=== PATIENT | male | born 1990 ===

== ENCOUNTER 2017-06-17 16:04 | Emergency (ER) | payer SELFPAY ==
[2017-06-17 16:11] VITALS: BP 113/69
[2017-06-17] MEDS ORDERED: DOXYcycline CAP(*) 100 MG PO ONE (17:55)
--- NOTE | 2017-06-17 18:08 | ED ---
Bite Injury/Animal - HPI Summary HPI Summary: Pt here w/ tick bite to posterior thigh x 36 hours. Believes it attached during a hike Friday and didn't find it until this morning. Area was tender - somewhat better now. Removed completely. No EM rash nor other sx. Imms are UTD. Agrees to take 1 x doxyxycline prophylaxis. - History of Current Complaint Chief Complaint: EDGeneral Stated Complaint: TICK BITE Time Seen by Provider: 06/17/17 17:54 Hx Obtained From: Patient Pain Intensity: 0 PMH/Surg Hx/FS Hx/Imm Hx Previously Healthy: Yes Endocrine/Hematology History: Denies: Hx Anticoagulant Therapy, Hx Blood Disorders, Autoimmune Disease - Immunization History Immunizations Up to Date: Yes Infectious Disease History: No Infectious Disease History: Denies: Traveled Outside the [place] in Last 30 Days - Family History Known Family History: Positive: None - Social History Occupation: Employed Full-time Alcohol Use: Occasionally Hx Substance Use: No Substance Use Type: Reports: None Hx Tobacco Use: No Smoking Status (MU): Never Smoked Tobacco Review of Systems Constitutional: Negative Positive: no symptoms reported Positive: Myalgia - in focal area of bite. Negative: Arthralgia Skin: Other - see HPI Neurological: Negative Negative: Weakness, Paresthesia, Numbness Psychological: Normal All Other Systems Reviewed And Are Negative: Yes Physical Exam Triage Information Reviewed: Yes Vital Signs On Initial Exam: Initial Vitals Temp Pulse Resp BP Pulse Ox 97.9 F 80 20 113/69 100 06/17/17 16:08 06/17/17 16:08 06/17/17 16:08 06/17/17 16:08 06/17/17 16:08 Vital Signs Reviewed: Yes Appearance: Positive: Well-Appearing, No Pain Distress, Well-Nourished Skin: Positive: Warm, Dry - macular ecchymosis over bite area about 2mm in size - no EM rash observed Head/Face: Positive: Normal Head/Face Inspection Eyes: Positive: EOMI ENT: Positive: Hearing grossly normal Respiratory/Lung Sounds: Positive: Breath Sounds Present Cardiovascular: Positive: Pulses are Symmetrical in both Upper and Lower Extremities Musculoskeletal: Positive: Normal, Strength/ROM Intact Neurological: Positive: Normal, Sensory/Motor Intact, Alert, Oriented to Person Place, Time, CN Intact II-III Psychiatric: Positive: Normal Diagnostics - Vital Signs Vital Signs Temp Pulse Resp BP Pulse Ox 10/24/17 16:08 97.9 F 80 20 113/69 100 - Laboratory Lab Statement: Any lab studies that have been ordered have been reviewed, and results considered in the medical decision making process. Bite Injury Course/Dx - Diagnoses Provider Diagnosis: Tick bite of thigh Discharge - Discharge Plan Condition: Stable Disposition: HOME Patient Education Materials: Tick Bite (ED) Referrals: Zonia Cartagena MD [Primary Care Provider] - Additional Instructions: Monitor for signs/symptoms of Lyme disease Follow-up with PCP if you have any concerns
== END 2017-06-17 18:24 | disposition home or self-care (01) ==
LOC: ED 16:04
DX: S70.369A Insect bite (nonvenomous), unspecified thigh, initial encounter (principal); W57.XXXA Bitten or stung by nonvenomous insect and other nonvenomous arthropods, initial encounter; Y93.9 Activity, unspecified; Y92.9 Unspecified place or not applicable
CPT/HCPCS: 99281; A9270-GY

== ENCOUNTER 2018-12-16 21:34 | Emergency (ER) | payer SELFPAY ==
[2018-12-16 21:43] VITALS: BP 129/60
[2018-12-16] MEDS ORDERED: Penicillin VK TAB* 250 MG PO ONE (21:54)
--- NOTE | 2018-12-16 21:54 | UC ---
[facility] HPI - HPI Summary HPI Summary: 28 yo male with left sided jaw pain x 3 days hurts to chew no f/c no n/v/d - History of Current Complaint Chief Complaint: UCDentalProblem Stated Complaint: JAW PAIN Time Seen by Provider: 12/16/18 21:48 Hx Obtained From: Patient Onset/Duration: Gradual Onset Severity: Moderate Pain Intensity: 6 Pain Scale Used: 0-10 Numeric Aggravating Factor(s): Chewing Alleviating Factor(s): Nothing Related History: Swelling Dental: 1 - swollen - Allergies/Home Medications Allergies/Adverse Reactions: Allergies Allergy/AdvReac Type Severity Reaction Status Date / Time diphenhydramine Allergy Hives/Diff. Verified 12/16/18 21:43 [From Benadryl] Breathing/I tching guaifenesin [From Robitussin] Allergy Hives/Diff. Verified 12/16/18 21:43 Breathing/I tching PMH/Surg Hx/FS Hx/Imm Hx Previously Healthy: Yes Other History Of: Negative For: Anticoagulant Therapy - Surgical History Surgical History: None - Family History Known Family History: Positive: Diabetes - Social History Alcohol Use: Rare Substance Use Type: None Smoking Status (MU): Light Every Day Tobacco Smoker Type: eCigarettes Review of Systems All Other Systems Reviewed And Are Negative: Yes Constitutional: Positive: Fever Skin: Positive: Negative Eyes: Positive: Negative ENT: Positive: Negative Respiratory: Positive: Negative Cardiovascular: Positive: Negative Gastrointestinal: Positive: Negative Genitourinary: Positive: Negative Motor: Positive: Negative Neurovascular: Positive: Negative Musculoskeletal: Positive: Negative Neurological: Positive: Negative Psychological: Positive: Negative Physical Exam Triage Information Reviewed: Yes Appearance: Well-Appearing, No Pain Distress, Well-Nourished Vital Signs: Initial Vital Signs Temp 98.4 F 12/16/18 21:39 Pulse 67 12/16/18 21:39 Resp 14 12/16/18 21:39 BP 129/60 12/16/18 21:39 Pulse Ox 98 12/16/18 21:39 Vital Signs Reviewed: Yes Eyes: Positive: Conjunctiva Clear ENT: Positive: Hearing grossly normal, TMs normal, Dental tenderness, Uvula midline. Negative: Pharyngeal erythema, Nasal congestion, Nasal drainage, Tonsillar swelling, Tonsillar exudate, Trismus, Muffled voice, Hoarse voice Dental: Positive: Other: - see image Neck: Positive: Supple, Nontender, No Lymphadenopathy Respiratory: Positive: Lungs clear, Normal breath sounds, No respiratory distress, No accessory muscle use Cardiovascular: Positive: RRR, No Murmur Musculoskeletal: Positive: ROM Intact, No Edema Neurological: Positive: Alert Psychological Exam: Normal Skin Exam: Normal Dental Complaint Course/Dx - Differential Dx/Diagnosis Provider Diagnosis: Dental abscess Discharge - Sign-Out/Discharge Documenting (check all that apply): Patient Departure All imaging exams completed and their final reports reviewed: No Studies - Discharge Plan Condition: Stable Disposition: HOME Prescriptions: Penicillin VK 500 MG TAB(NF) [Penicillin VK 500 mg Tab] 500 mg PO QID #28 tab Patient Education Materials: Dental Abscess (ED) Referrals: Zonia Cartagena MD [Primary Care Provider] - Additional Instructions: recheck in 2-3 days if not better tylenol or advil for pain try to get in to see a dentist next week - Billing Disposition and Condition Condition: STABLE Disposition: Home
== END 2018-12-16 22:00 | disposition home or self-care (01) ==
LOC: UCEAST 21:34
DX: K04.7 Periapical abscess without sinus (principal); R50.9 Fever, unspecified; Z88.8 Allergy status to other drugs, medicaments and biological substances; F17.290 Nicotine dependence, other tobacco product, uncomplicated
CPT/HCPCS: 99212; A9270-GY; G0463